=== PATIENT | male | born 1990 | race Caucasian/White ===

== ENCOUNTER 2018-05-20 15:17 | Emergency (ER) | payer MEDICAID ==
[~2018-05-20] VITALS: Ht 172.7 cm; Wt 56.8 kg
[~2018-05-20 15:17] MED LIST: FAMO-128 PO
--- NOTE | 2018-05-20 16:25 | NUR ---
patient fell on freestanding woodstove last night at about 2300, he "had a couple of beers"
--- NOTE | 2018-05-20 16:28 | NUR ---
patient pu bag balm on his left arm burn
[2018-05-20] MEDS ORDERED: silver sulfadiazine cream 400gm jar TP STA (16:34)
[2018-05-20] MEDS ORDERED: TETanus/Pertussis (Acell)/Diphther VAC/PF (Tdap-Adult) 0.5ml syringe IMVAC ONE (16:35)
[2018-05-20] MEDS ORDERED: HYDROcodone/acetaminophen 10/325mg tab PO ONE (16:35)
[2018-05-20] MEDS ORDERED: CLIN150C2 PO (16:38)
[2018-05-20] MEDS ORDERED: HYDR-4383 PO (16:38)
[2018-05-20] MEDS ORDERED: silver sulfadiazine cream 50gm TP STA (16:49)
--- NOTE | 2018-05-20 16:55 | NUR ---
SUPERIOR BURN 7X3 CM OPEN, INFERIOR TO THAT BURN 2X2 OPEN AREA: ON LEFT ARM; THEN BELOW AREA TWO AREAS ABOUT 2X1CM EACH CLEANED WITH STERILE NS AND GAUZE LEFT ARM SPICER
--- NOTE | 2018-05-20 17:26 | NUR ---
SILVADENE APPLIED TO LEFT ARM OPEN AREA SPICER
--- NOTE | 2018-05-20 17:29 | NUR ---
APPLIED XEROFORM TO ALL OPEN BURN AREAS USING ONE LARGE AND ONE SMALL XEROFORM; APPLIED 2 NON STICK DRESSINGS OVER SPICER AND 4X4 GAUZE AND WRAPPED LOOSELY IN GAUZE AND 2 INCH SLEEVE APPLIED. PATIENT SEEN AND TREATED FOR SPICER TO LEFT ARM. PATIENT VERBALIZED DISCHARGE INSTRUCTIONS. PATIENT WILL TAKE AND FINISH ANTIBIOTIC AND WILL USE NORCO NEEDED FOR PAIN UNRELIEVED BY OTC PAIN MEDICATION. PATIENT WILL NOT DRIVE WHILE ON NORCO. PATIENT WILL DO AND VERBALIZED DAILY DRESSING CHANGES. PATIENT WILL CALL AND FOLLOW UP WITH [facility]. PATIENT PROVEDED WITH 3 DAYS WORTH OF DRESSING CHANGES. CRISTIANO GAVE SILVADENE TO PATIENT. PATIENT AMBULATED OUT OF ER WITH [facility]IVING/
[2018-05-20 18:23] VITALS: BP 118/69
== END 2018-05-20 18:25 | disposition home or self-care (01) ==
LOC: ER 15:17
DX: T22.222A Burn of second degree of left elbow, initial encounter (principal); K21.9 Gastro-esophageal reflux disease without esophagitis; F12.90 Cannabis use, unspecified, uncomplicated; X15.0XXA Contact with hot stove (kitchen), initial encounter; Y93.89 Activity, other specified; Y92.099 Unspecified place in other non-institutional residence as the place of occurrence of the external cause; Y99.8 Other external cause status
CPT/HCPCS: 16020; 90471; 90715; 99284

== ENCOUNTER 2018-05-22 09:15 | Day surgery (SDC) | payer MEDICAID ==
[~2018-05-22 09:15] MED LIST changes: +CLIN150C2 PO; +HYDR-4383 PO
[2018-05-22] MEDS ORDERED: CITA20TA28 PO (10:16)
[2018-05-22] MEDS ORDERED: TRAZ-218 PO (10:16)
[2018-05-22] MEDS ORDERED: silver sulfadiazine cream 50gm TP ONE (10:58)
--- NOTE | 2018-05-22 11:42 | NUR ---
Patient ambulated independently from [facility] and was admitted to outpatient wound care for first time visit with physician. Dressing removed and wound cleansed. Patient assessed and medications and medical history reviewed. Dr. Brown at bedside accompanied by RN. Wound assessed, time out performed by MD/RN. Wound debrided as detailed in the physician progress/procedure note. Plan of care discussed with patient. Dressings placed per MD orders. Patient instructed on the signs and symptoms of infection and to call the Wound Center if any occur or to go to the ED if we are closed: Increased pain in wound Increase in drainage from the wound Redness in the skin surrounding the wound Bleeding from the wound Temperature of 101 or greater Patient instructed that the weight of their body puts a large amount of pressure on their wounds. This pressure keeps the new tissue from growing and inhibits new blood vessels from forming. Explained that, if they continue to bear weight on a body part that has a wound, the time it takes to heal the wound increases, the wound may get worse or the wound may not heal at all. Patient verbalized understanding of all discharge instructions and plan of care and ambulated independently out to [facility] in stable condition with no sign or symptom of distress at time of discharge. Addendum: 05/22/18 at 1146 by Kisha Hanley RN Amended: Links added.
== END 2018-05-22 11:10 | disposition home or self-care (01) ==
LOC: WOUND CARE 09:15
PROVIDERS: ATTEND Surgery
DX: T22.20XA Burn of second degree of shoulder and upper limb, except wrist and hand, unspecified site, initial encounter (principal); L98.491 Non-pressure chronic ulcer of skin of other sites limited to breakdown of skin; K21.9 Gastro-esophageal reflux disease without esophagitis; F41.9 Anxiety disorder, unspecified; F32.9 Major depressive disorder, single episode, unspecified; F12.10 Cannabis abuse, uncomplicated; X08.8XXA Exposure to other specified smoke, fire and flames, initial encounter; Y93.89 Activity, other specified; Y92.89 Other specified places as the place of occurrence of the external cause; Y99.8 Other external cause status
CPT/HCPCS: 97597; A6223; 97598; A6446

== ENCOUNTER 2021-10-04 14:48 | Emergency (ER) | payer MEDICAID ==
[~2021-10-04] VITALS: Ht 175.3 cm; Wt 63.0 kg
[~2021-10-04 14:48] MED LIST changes: +CITA20TA28 PO; -CLIN150C2 PO; +TRAZ-251 PO
[2021-10-04 14:53] VITALS: BP 144/83
[2021-10-04] MEDS ORDERED: ketorolac tromethamine 15mg/ml inj. IM ONE (16:45)
== END 2021-10-04 17:56 | disposition home or self-care (01) ==
LOC: ER 14:49
DX: M25.572 Pain in left ankle and joints of left foot (principal); K21.9 Gastro-esophageal reflux disease without esophagitis; F12.90 Cannabis use, unspecified, uncomplicated
CPT/HCPCS: 73610; 99283; A6449

== ENCOUNTER 2022-04-28 19:37 | Emergency (ER) | payer MEDICAID ==
[~2022-04-28] VITALS: Ht 175.3 cm; Wt 56.8 kg
[2022-04-28] MEDS ORDERED: diazepam 5mg tablet PO ONE (20:30)
[2022-04-28] MEDS ORDERED: MAGN64TA8 PO (20:38)
[2022-04-28] MEDS ORDERED: DIAZ5TAB4 PO (20:38)
== END 2022-04-28 20:53 | disposition home or self-care (01) ==
LOC: ER 19:38
DX: F10.239 Alcohol dependence with withdrawal, unspecified (principal); F10.229 Alcohol dependence with intoxication, unspecified; K21.9 Gastro-esophageal reflux disease without esophagitis; F12.10 Cannabis abuse, uncomplicated; Z79.899 Other long term (current) drug therapy; Z79.1 Long term (current) use of non-steroidal anti-inflammatories (NSAID); Z79.2 Long term (current) use of antibiotics; Y90.9 Presence of alcohol in blood, level not specified
CPT/HCPCS: 99283

== ENCOUNTER 2023-06-11 21:51 | Emergency (ER) | payer MEDICAID ==
[~2023-06-11] VITALS: Ht 172.7 cm; Wt 58.0 kg
[~2023-06-11 21:51] MED LIST changes: +DIAZ5TAB4 PO; +MAGN64TA8 PO
[2023-06-11 21:55] VITALS: BP 140/63; PULSE 108; RESP 20; TEMP 97.6; O2SAT 97
== END 2023-06-12 01:43 | disposition home or self-care (01) ==
LOC: ER 21:53
DX: F41.0 Panic disorder [episodic paroxysmal anxiety] (principal); F12.90 Cannabis use, unspecified, uncomplicated; F41.9 Anxiety disorder, unspecified; Z79.899 Other long term (current) drug therapy; Z79.2 Long term (current) use of antibiotics; Z72.89 Other problems related to lifestyle
CPT/HCPCS: 99281

== ENCOUNTER 2024-04-17 10:32 | Emergency (ER) | payer MEDICAID ==
[~2024-04-17] VITALS: Ht 172.7 cm; Wt 57.7 kg
[2024-04-17] MEDS ORDERED: METH-798 PO (11:59)
[2024-04-17] MEDS ORDERED: PRED20TA PO (11:59)
[2024-04-17] MEDS: dexamethasone sod phosphate 10mg/ml inj IM STA (12:06)
[2024-04-17 12:10] VITALS: BP 146/78; PULSE 88; RESP 18; TEMP 97.8; O2SAT 98
== END 2024-04-17 12:10 | disposition home or self-care (01) ==
LOC: ER 10:32
DX: M54.17 Radiculopathy, lumbosacral region (principal); M25.551 Pain in right hip; K21.9 Gastro-esophageal reflux disease without esophagitis; F12.90 Cannabis use, unspecified, uncomplicated; F41.9 Anxiety disorder, unspecified; Z79.899 Other long term (current) drug therapy
CPT/HCPCS: 72100; 73503; 96372; 99284; J1100

== ENCOUNTER 2024-05-01 14:03 | Emergency (ER) | payer MEDICAID ==
[~2024-05-01] VITALS: Ht 172.7 cm; Wt 57.7 kg
[~2024-05-01 14:03] MED LIST changes: +METH-798 PO
[2024-05-01] MEDS ORDERED: METH-798 PO (15:26)
[2024-05-01] MEDS ORDERED: PRED20TA PO (15:31)
[2024-05-01 15:49] VITALS: BP 128/82; PULSE 76; RESP 18; TEMP 97.8; O2SAT 100
== END 2024-05-01 15:49 | disposition home or self-care (01) ==
LOC: ER 14:04
DX: M25.552 Pain in left hip (principal); M54.50 Low back pain, unspecified; M25.571 Pain in right ankle and joints of right foot; K21.9 Gastro-esophageal reflux disease without esophagitis; G89.29 Other chronic pain; M54.9 Dorsalgia, unspecified; F41.9 Anxiety disorder, unspecified; F12.90 Cannabis use, unspecified, uncomplicated; F10.90 Alcohol use, unspecified, uncomplicated; Z79.899 Other long term (current) drug therapy; Y90.9 Presence of alcohol in blood, level not specified
CPT/HCPCS: 99284

== ENCOUNTER 2024-11-07 06:18 | Outpatient (CLI) | payer MEDICAID ==
[~2024-11-07 06:18] MED LIST changes: +CITA-178 PO; -CITA20TA28 PO; -MAGN64TA8 PO; +MAGN71.52 PO
[2024-11-07] MEDS ORDERED: LIDOcaine 1% 30ml preserv. free vial ONE (06:42)
[2024-11-07] MEDS ORDERED: iohexol 300 MG/1 ML 50ml polymer ONE (06:42)
[2024-11-07] MEDS ORDERED: GADOTERATE MEGLUMINE 7.5 MMOL/15 ML VIAL IV ONE (06:42)
[2024-11-07] MEDS ORDERED: LIDOcaine 1%/PF 5ML 10 MG/ML VIAL ONE (06:42)
--- NOTE | 2024-11-07 08:09 | RADIOLOGY REPORT ---
ANGIO ARTHROGRAM (A) Date: 11/07/2024 07:23 AM Clinical History: PAIN IN RIGHT HIP Comparison: None Procedure: Verbal and written informed consent were obtained from the patient for the procedure of RIGHT HIP fl uoroscopically guided arthrogram, after the procedure, risks, and benefits of the procedure were expl ained to the patient. Risks include bleeding, infection, reaction to injected medications, and damag e to surrounding anatomic structures. The patient's questions were answered. The patient's most rec ent medical history was reviewed. A time out was performed to verify the patient's name, date of , and correct location of the pro cedure, prior to initiation of the procedure. The patient was placed supine on the fluoroscopic table and the area overlying the RIGHT HIP was pre pped and draped in the usual sterile fashion. Approximately 7 ml of buffered 1% lidocaine were infus ed for local anesthesia. The patient tolerated the procedure well. There were no immediate complications. Home-care instruct ions were reviewed with the patient prior to the patient's discharge from the fluoroscopy suite. The patient verbally affirmed understanding of these instructions. Impression: Technically successful fluoroscopically guided RIGHT HIP arthrogram. The patient was transported to MRI for further imaging at the completion of the procedure. Procedure by Dr. Reno
--- NOTE | 2024-11-07 08:22 | RADIOLOGY REPORT ---
CLINICAL INFORMATION: PAIN IN RIGHT HIP. TECHNIQUE: Multisequence multiplanar MR arthrogram images of the right hip were obtained after the u neventful intra-articular administration of a dilute gadolinium contrast mixture under fluoroscopic g uidance. Refer to the separately dictated arthrogram injection report for details concerning the cont rast injection. COMPARISON: DI HIP,UNI 4VWS (INCLUDE PELVIS) on DOS: 04/17/24 FINDINGS: Poor or absent fat saturation on the fat saturated images limits evaluation. BONES: No acute fracture or osteonecrosis. Small bone island at the right femoral head / neck junctio n. JOINT: There is fraying of the superior labrum, possible small tear at the chondral labral junction o f the superior labrum. There is adequate distention of the joint with contrast. BURSAE: Mild edema and small amount of fluid in the right hip trochanteric bursa with similar finding s seen in the contralateral left hip trochanteric bursa. TENDONS: Mild tendinosis of the distal gluteus medius and minimus tendons. Origins of the rectus femo ris tendon and hamstring tendons are intact. Distal insertion of the iliopsoas tendon is intact. MUSCLES: Normal muscle bulk. No significant atrophy. No evidence of muscle strain or tear. OTHER: No other significant findings. IMPRESSION: 1. Limited examination due to poor or absent fat saturation on the fat saturated sequences. 2. Fraying of the superior labrum with possible small tear at the chondral labral junction. 3. Mild bilateral trochanteric bursitis. 4. Additional nonacute findings as described above.
== END 2024-11-07 23:59 | disposition home or self-care (01) ==
LOC: RAD 06:18
PROVIDERS: ATTEND Pediatrics Sports Medicine
DX: M25.551 Pain in right hip (principal); M51.379 Other intervertebral disc degeneration, lumbosacral region without mention of lumbar back pain or lower extremity pain; M46.1 Sacroiliitis, not elsewhere classified; M54.32 Sciatica, left side; M70.61 Trochanteric bursitis, right hip
CPT/HCPCS: 27095; 73722; 77002; A9575; J2003; J3490; Q9967

== ENCOUNTER 2025-03-12 12:56 | Emergency (ER) | payer MEDICAID ==
[~2025-03-12] VITALS: Ht 172.7 cm; Wt 59.8 kg
[2025-03-12 13:24] VITALS: BP 139/85; PULSE 83; TEMP 98.9; O2SAT 97
--- NOTE | 2025-03-12 14:43 | Physician Documentation ---
History of Present Illness ~ Chief Complaint: Back Pain Stated Complaint: BACK AND HIP PAIN Time Seen by MD: 13:43 Primary Medical Doctor: None HPI Patient is a very pleasant 34-year-old male that presents to the emergency department for evaluation of left lumbosacral back pain since Monday. Patient denies any knowledge of trauma any recent injury no twisting no falling any oth er thing that could be cause of the injury or pain. Patient reports he has had a history of left ankle pain x3 years walks with a cane. Patient denies any incontinence of bowel or bladder any perineal numbness. Other symptoms reported at this time. Medication Reconciliation Allergies: Coded Allergies: No Known Allergies (Unverified , 03/12/25) Scheduled Citalopram Hydrobromide* (Celexa*), 1 TAB PO DAILY, (Reported) Diazepam (Diazepam), 1 TAB PO Q 8 hr Famotidine (Pepcid), 1 TABLET PO BID, (Reported) Hydrocodone/Acetaminophen (Ponce 5-325 Tablet), 1 TAB PO BID Magnesium Chloride (Slow-Mag), 1 TAB PO Q12H Methocarbamol (Methocarbamol), 1 TAB PO Q8H Trazodone HCl (Trazodone HCl), 1 TAB PO HS, (Reported) Past Medical History Past Medical History: GERD, *PSYCH*, Anxiety Past Surgical History: no surgical history Patient History: Patient reports no known family medical history. Alcohol Use: Heavy Drug Use: marijuana Lives In: Home Occupation: employed Review of Systems ROS As stated above in the HPI, otherwise all systems are reviewed and negative. Physical Exam Physical Exam Vital Signs: Temperature: 98.9, Source: Oral, Heart Rate: 83, Respiratory Rate: 18, BP: 139/85, Pulse Oximetry: 97, Weight: 59.800 Oxygen Flow Rate: 0 Physical Exam VITALS: Reviewed and as above. GENERAL: Alert, no apparent distress. BACK: No CVA tenderness, or swelling MUSCULOSKELETAL No deformities, no edema, reduced range of motion with bending on the left side primarily, positive straight leg raise on the left side during examination. SKIN: Warm and dry, no rash NEURO: Oriented x4, No motor or sensory deficit PSYCH: Normal mood and affect, no agitation Progress Results/Orders Results/Orders Completed Orders - MARCI LEDBETTER Ketorolac Trometh 15mg/Ml Vial (Toradol (03/12/25 13:45) Methylprednisolone Sod Succ (Solumedrol (03/12/25 13:45) Vital Signs 03/12/25 13:24 Temp 98.9 Pulse 83 Resp 18 B/P (MAP) 139/85 Pulse Ox 97 O2 Flow Rate 0 Medical Decision Making Additional information obtaine: other Findings Chief Complaint: Left lumbosacral back pain History of Present Illness: 34-year-old male presenting with left lumbosacral back pain since Monday. No identifiable trauma, injury, twisting mechanism, or fall. Patient has chronic left ankle pain for 3 years and ambulates with a cane. Pertinent Positives: Acute onset left lumbosacral pain, chronic left ankle pain with assistive device use Pertinent Negatives: No trauma, no bowel or bladder incontinence, no saddle anesthesia, no fever, no unexplained weight loss, no history of cancer, no progressive neurologic deficits Physical Examination: Patient declined radiographic imaging as no new injury identified. Risk Stratification: Patient screened negative for red flag symptoms including cauda equina syndrome (no urinary retention, fecal incontinence, or saddle anesthesia), infection (no fever), malignancy (no cancer history, no unexplained weight loss), and fracture (no significant trauma). [3] No severe or progressive neurologic deficits identified. Diagnostic Imaging: Patient declined lumbar spine radiographs. This is con sistent with evidence-based guidelines recommending against routine imaging for acute nonspecific low back pain in the absence of red flags. [1-3] [employer] and multiple clinical practice guidelines support deferring imaging in patients without trauma, neurologic deficits, or other concerning features. [3] Treatment Provided: Ketorolac (Toradol) administered for analgesia - NSAIDs have moderate-quality evidence for small improvement in pain intensity and function in acute low back pain [2][4] Methylprednisolone (Solu-Medrol) injection administered - systemic corticosteroids may provide benefit for radicular symptoms [3][5] Cyclobenzaprine (Flexeril) prescribed for 7 days - muscle relaxants have moderate-quality evidence for pain relief in acute low back pain when initiated within first 2 weeks [2][4] Disposition: Discharge home with outpatient follow-up Plan: Continue cyclobenzaprine as prescribed for muscle spasm May use [id number] NSAIDs or heat therapy as needed for pain management [2][4] Advised to remain active as tolerated - bed rest not recommended [2][4] Follow up with primary care provider for ongoing management Return precautions discussed: return to ED for development of bowel/bladder incontinence, saddle anesthesia, progressive lower extremity weakness, fever, or significant worsening of pain despite treatment Medical Decision Making Complexity: Moderate complexity. Multiple management options considered. Acute uncomplicated problem with low risk of morbidity without treatment. Data reviewed includes comprehensive history and physical examination. Risk of complications from treatment is low with appropriate monitoring. Prognosis: Most patients with acute low back pain improve over time regardless of treatment, with high likelihood for substantial improvement in the first month. [2][4] Differential Dx:Considerations: Strain, Other Departure Disposition: 01 HOME / SELF CARE / HOMELESS Impression: Primary Impression: Back problem Additional Impression: Strain of lumbar region Condition: Stable Discharge Instructions: Sciatica, Lumbosacral Strain Referrals: NO PRIMARY CARE PROVIDER (PCP) Prescriptions Cyclobenzaprine* (Cyclobenzaprine*) 10 Mg Tablet 1 TAB PO BID for 7 Days, #15 TAB Prov: MARCI LEDBETTER 03/12/25 Education Educated: Patient Educated regarding: diagnosis, treatment, need for follow up Signature Scribe Signature: A Attestation: Scribed for Marci Ledbetter by LORNE Nowak . 03/12/25 14:55 MARCI LEDBETTER Mar 12, 2025 14:43
[2025-03-12] MEDS ORDERED: CYCL-1 PO (14:54)
[2025-03-12 15:10] VITALS: RESP 16
[2025-03-12] MEDS: ketorolac trometh 15mg/ml vial 15 MG/ML ML IM ONE (15:10)
== END 2025-03-12 15:55 | disposition home or self-care (01) ==
LOC: ER 12:56
DX: S39.012A Strain of muscle, fascia and tendon of lower back, initial encounter (principal); G89.29 Other chronic pain; F12.90 Cannabis use, unspecified, uncomplicated; Z79.899 Other long term (current) drug therapy; X58.XXXA Exposure to other specified factors, initial encounter; Y93.89 Activity, other specified; Y92.89 Other specified places as the place of occurrence of the external cause; Y99.8 Other external cause status
CPT/HCPCS: 96372; 99284; J1885; J2919